=== PATIENT | female | born 1945 | race Caucasian/White ===

== ENCOUNTER 2016-11-23 03:49 | Emergency (ER) | payer OTHER, MEDICAID ==
[~2016-11-23] VITALS: Ht 149.9 cm; Wt 95.3 kg
[~2016-11-23 03:49] MED LIST: ALBU2.5V7 INH; ALIGN PO; AMLO2.5T2 PO; ASCO500T20 PO; CAPT12.53 PO; FLUT1DIS3 INH; FURO-149 PO; HYDR2TAB34 PO; IPRA0.2S6 INH; LINA145C PO; MULT-1117 PO; OXYC5TAB84 PO; PANT20TA2 PO; POLY17PO4 PO; PRED5TAB PO; RANI300T7 PO; SPIRIVA INH; [UNRECOGNIZED DRUG - CODE] PO
[2016-11-23 03:50] VITALS: BP_SYST 149
[2016-11-23] MEDS ORDERED: FUROSEMIDE 40 MG/4 ML VIAL IVP ONE (04:15)
[2016-11-23] MEDS ORDERED: IBUPROFEN 800 MG TABLET PO ONE (05:00)
[2016-11-23] MEDS ORDERED: MORPHINE 4 MG/ML INJ. SYRINGE IM ONE (06:00)
[2016-11-23 06:50] VITALS: BP_SYST 146
== END 2016-11-23 06:50 ==
LOC: SED 03:49
DX: S93.602A Unspecified sprain of left foot, initial encounter (principal); J44.9 Chronic obstructive pulmonary disease, unspecified; I10 Essential (primary) hypertension; E11.9 Type 2 diabetes mellitus without complications; Z87.442 Personal history of urinary calculi; Z88.1 Allergy status to other antibiotic agents; Z88.0 Allergy status to penicillin; Z88.5 Allergy status to narcotic agent; Z91.02 Food additives allergy status; Z91.040 Latex allergy status; Z79.899 Other long term (current) drug therapy; X58.XXXA Exposure to other specified factors, initial encounter; Y93.89 Activity, other specified; Y92.89 Other specified places as the place of occurrence of the external cause; Y99.8 Other external cause status
CPT/HCPCS: 73630; 96372; 99284; J2270